=== PATIENT | male | born 1945 | race Caucasian/White ===

== ENCOUNTER 2019-01-24 12:28 | Outpatient (CLI) | payer MEDICARE, MEDICAID | END 2019-01-24 23:59 | disposition home or self-care (01) | LOC: VAS 12:28 | DX: I65.23 Occlusion and stenosis of bilateral carotid arteries (principal); I63.312 Cerebral infarction due to thrombosis of left middle cerebral artery; I10 Essential (primary) hypertension; E11.9 Type 2 diabetes mellitus without complications | CPT/HCPCS: 93005; 93880 ==